=== PATIENT | male | born 1955 | race Caucasian/White ===

== ENCOUNTER 2018-02-10 09:25 | Outpatient (CLI) | payer OTHER ==
[2018-02-10 10:13] LABS: Anion Gap 17 mmol/L (10-20); BUN (Urea Nitrogen) 25 mg/dL (8.4-25.7); Calc. Creatinine Clearance 0 mL/min (70-130); Calcium 9.8 mg/dL (7.8-10.44); Carbon Dioxide 24 mmol/L (23-31); Chloride 103 mmol/L (98-107); Estimated GFR-MDRD 57; Glucose 128 mg/dL (80-115); Potassium 4.3 mmol/L (3.5-5.1); Sodium 140 mmol/L (136-145)
--- NOTE | 2018-02-10 11:00 | RAD ---
RIGHT KNEE FOUR VIEWS: HISTORY: Chronic pain. FINDINGS: No joint effusion. There is moderate medial compartment degenerative change. There is mild to moder ate patellofemoral and lateral compartment degenerative change. No fracture or malalignment. IMPRESSION: Tricompartment degenerative change. POS: [facility]
--- NOTE | 2018-02-10 11:21 | RAD ---
LEFT KNEE 4 VIEWS: HISTORY: Chronic knee pain. COMPARISON: None. FINDINGS: No significant joint effusion. There is moderate to severe narrowing of the medial compartment. Mod erate narrowing of the lateral compartment. Tricompartmental osteophytes. There are some calcifications of Hoffa's fat pad. IMPRESSION: 1. Moderate to severe degenerative changes. 2. Likely an old lateral tibial plateau injury. POS: [facility]
[2018-02-12 07:27] LABS: Total PSA Less than 0.1 ng/mL (0.0-4.0)
== END 2018-02-10 09:26 | disposition home or self-care (01) ==
LOC: MADLABBHPM 09:25
PROVIDERS: ATTEND Family Medicine
DX: M25.561 Pain in right knee (principal); M25.562 Pain in left knee; E03.9 Hypothyroidism, unspecified; N28.9 Disorder of kidney and ureter, unspecified; M17.0 Bilateral primary osteoarthritis of knee; Z85.46 Personal history of malignant neoplasm of prostate
CPT/HCPCS: 36415; 80048; 84153; 84154; 84443

== ENCOUNTER 2019-04-11 09:36 | Outpatient (CLI) | payer OTHER ==
[2019-04-11 10:25] LABS: Anion Gap 15 mmol/L (10-20); BUN (Urea Nitrogen) 16 mg/dL (8.4-25.7); Calc. Creatinine Clearance 0 mL/min (70-130); Calcium 9.6 mg/dL (7.8-10.44); Carbon Dioxide 27 mmol/L (23-31); Chloride 100 mmol/L (98-107); Estimated GFR-MDRD 59; Glucose 136 mg/dL (80-115); Sodium 138 mmol/L (136-145)
--- NOTE | 2019-04-11 10:28 | ULT ---
Exam: Bilateral renal ultrasound HISTORY: Chronic kidney disease. Multiple treatment for prostate cancer. 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 COMPARISON: None FINDINGS: Right kidney: Normal cortical echotexture. No hydronephrosis. Right kidney measurements: 13.7 x 5.6 x 6.4 cm. Urinary bladder: Limited evaluation of the mucosa due to inadequate distention. Prevoid volume is 31 mL. No significant post void residual. IMPRESSION: No hydronephrosis.
[2019-04-11 17:58] LABS: 24 Hr Creatinine 2027.35 mg/24 hr (950-2490); Creatinine, Urine 86.27 mg/dL (63-166)
== END 2019-04-11 09:37 | disposition home or self-care (01) ==
LOC: MADLAB 09:36
PROVIDERS: ATTEND Internal Medicine Nephrology
DX: N18.3 Chronic kidney disease, stage 3 (moderate) (principal); N25.81 Secondary hyperparathyroidism of renal origin
CPT/HCPCS: 36415; 76775; 80048; 82570; 83970

== ENCOUNTER 2019-06-16 10:39 | Outpatient (CLI) | payer BC ==
[2019-06-16 11:55] LABS: Cardiac Risk 4.1 (Less than 4.5)
[2019-06-16 17:07] LABS: Hemoglobin A1c 6.6 % (4.0-6.0)
== END 2019-06-16 10:40 | disposition home or self-care (01) ==
LOC: MADLABBHPM 10:39
PROVIDERS: ATTEND Family Medicine
DX: E11.9 Type 2 diabetes mellitus without complications (principal)
CPT/HCPCS: 36415; 80061; 83036

== ENCOUNTER 2019-12-28 12:37 | Outpatient (CLI) | payer BC ==
--- NOTE | 2019-12-28 14:09 | RAD ---
LEFT KNEE THREE VIEWS: 12/28/19 HISTORY: Osteoarthritis, left knee pain. FINDINGS/IMPRESSION: No fracture, dislocation, or bony destruction is seen. Degenerative changes are present. POS: [facility]
--- NOTE | 2019-12-28 14:09 | RAD ---
RIGHT KNEE 3 VIEWS: Date: 12/28/2019 HISTORY: Right knee pain, osteoarthritis. FINDINGS/IMPRESSION: Degenerative changes are present. No fracture, dislocation, or bony destruction is seen. No joint eff usion is identified. POS: [facility]
--- NOTE | 2019-12-28 15:35 | RAD ---
EXAM: 2 views of the left hip HISTORY: Left hip pain COMPARISON: None FINDINGS: 2 views of the left hip shows no evidence of acute fracture or dislocation. No degenerative changes are seen. No soft tissue swelling is present. IMPRESSION: No evidence of acute osseous abnormality.
--- NOTE | 2019-12-28 15:35 | RAD ---
EXAM: 2 views of the right hip HISTORY: Right hip pain COMPARISON: None FINDINGS: 2 views of the right hip shows no evidence of acute fracture or dislocation. No degenerativ e changes are seen. No soft tissue swelling is present. Vascular calcifications are seen. IMPRESSION: No evidence of acute osseous abnormality.
[2019-12-28 17:24] LABS: Iron 76 ug/dL (65-175); Iron Binding Capacity, Total 324 mcg/dL (261-462)
== END 2019-12-28 12:38 | disposition home or self-care (01) ==
LOC: MADLAB 12:37
PROVIDERS: ATTEND Family Medicine
DX: M17.0 Bilateral primary osteoarthritis of knee (principal); D64.9 Anemia, unspecified
CPT/HCPCS: 36415; 82728; 83540; 83550